=== PATIENT | female | born 1995 | race Caucasian/White ===

== ENCOUNTER 2018-01-22 14:05 | Inpatient (IN) | payer MEDICAID ==
[2018-01-22 15:24] VITALS: BMI 28.1
[2018-01-22] MEDS ORDERED: Lactated Ringer's 1,000 ML IV SCH (15:30)
--- NOTE | 2018-01-22 15:48 | OBADHP ---
Datetime: 01/22/2018 15:46 Admit Comment, IP Provider: 22 yo lmp 04/18 edc 01/23 by lmp _ 31wk ob us. she presents to obe d for nst referred by dr reyes. denies decreased fm, srom, or bleeding. she states she passed mucu s plug 3wks ago. +crmping, mild per pt. Ob hx sig for late transfer of care, noncompliance with irons supplem and Fe infusion. La st 11mo's ago obhx 02/17/17 pmhx: sickle cell trait; h/o anemia requiring transfusion in prior preg nkda medic: pnv fesoqd shx: denies tobocco use, etoh or illicit drugs. i: 39.twks Variable decels resolved p: admit for delivery variable decels resolved with maternal repositioning rubella titer, hepBs ag Datetime: 01/22/2018 15:32 Pelvic Type - PN: Adequate Extremities - PN: Normal Abdomen - PN: Normal Back - PN: Normal Breast - PN: Not Done Lungs - PN: Normal Heart - PN: Normal Neurologic - PN: Normal HEENT - PN: Normal General - PN: Normal Presentation-Admit: Vertex Membranes, Provider: Intact Contraction Comments Provider: 2-4 Vital Signs Provider: Within Normal Limits IP Chief Complaint: Other NICHD Variability Prov Fetus A: Moderate 6-25bpm NICHD Accel Fetus A IP Provider: [id number] FHR Category Provider Fetus A: Category II NICHD Decel Fetus A IP Provider: Variable Dilatation, Provider: 3 Effacement, Provider: 40 Station, Provider: -3 Genitourinary Exam: Normal EGA AdmitDate IP: 39.6 IP Adm Impression: Term, intrauterine IP Admit Plan: Admit to unit
[2018-01-22 17:43] LABS: BASO % 0.3 % (0.0-2.0); EOS % 0.3 % (0.0-4.0); HEMOGLOBIN 7.8 g/dL (12.0-16.0); LYMPH # 2.2 K/uL (1.0-4.3); LYMPH % 19.6 % (20.0-40.0); MEAN CELL VOLUME 62.6 fl (81.0-99.0); MEAN CORPUSCULAR HEMOGLOBIN 18.9 pg (27.0-31.0); MEAN CORPUSCULAR HGB CONC 30.2 g/dL (33.0-37.0); MEAN PLATELET VOLUME 7.9 fl (7.2-11.7); MONO # 0.9 K/uL (0.0-0.8); MONO % 7.8 % (0.0-10.0); RBC 4.12 Mil/uL (3.80-5.20); WHITE BLOOD COUNT 11.1 K/uL (4.8-10.8)
[2018-01-22] MEDS: Lactated Ringer's 1,000 ML IV SCH ×2 (17:45→19:00)
[2018-01-23] MEDS ORDERED: Fentanyl/Bupivacaine HCl 250 ML EPI ONE (01:49)
[2018-01-23] MEDS ORDERED: Oxycodone/Acetaminophen 5/325 mg Tab PO PRN ×2 (08:38→10:57)
[2018-01-23] MEDS ORDERED: Multivitamin With Minerals Tab PO SCH (09:00)
[2018-01-24 06:54] LABS: BASO # 0.1 K/uL (0.0-0.2); BASO % 0.5 % (0.0-2.0); EOS # 0.2 K/uL (0.0-0.7); EOS % 1.2 % (0.0-4.0); HEMOGLOBIN 7.4 g/dL (12.0-16.0); LYMPH # 3.1 K/uL (1.0-4.3); LYMPH % 23.1 % (20.0-40.0); MEAN CELL VOLUME 62.7 fl (81.0-99.0); MEAN CORPUSCULAR HEMOGLOBIN 19.4 pg (27.0-31.0); MEAN CORPUSCULAR HGB CONC 30.9 g/dL (33.0-37.0); MEAN PLATELET VOLUME 8.2 fl (7.2-11.7); MONO # 1.2 K/uL (0.0-0.8); MONO % 8.9 % (0.0-10.0); NEUT # 8.8 K/uL (1.8-7.0); NEUT % 66.3 % (50.0-75.0); NRBC % 0.1 % (0.0-0.0); RBC 3.84 Mil/uL (3.80-5.20); RED CELL DISTRIBUTION WIDTH 18.4 % (11.5-14.5); WHITE BLOOD COUNT 13.2 K/uL (4.8-10.8)
[2018-01-24] MEDS: Multivitamin With Minerals Tab PO SCH (08:19)
--- NOTE | 2018-01-25 08:10 | OBPPN ---
Datetime: 01/25/2018 08:06 PP Pain Prov: Within normal limits PP Nausea Prov: Denies PP Flatus Prov: Yes PP Breasts Prov: Normal PP Heart Prov: Normal PP Lungs Prov: Normal PP Abdomen/Uterus Prov: Normal PP Lochia Prov: Normal PP Vulva/Perineum Prov: Normal PP CVA Tenderness Prov: Normal PP Extremities Prov: Normal PP Progress Prov: Normal PP Impression Prov: Normal progression PP Plan Prov: Discharge PP Progress Note Prov: S/P , Clinically Stable Plan: D/c home Datetime: 01/24/2018 10:01 PP BM Prov: No Vital Signs Provider PP: Reviewed; Within Normal Limits
--- NOTE | 2018-01-25 08:12 | OBDCSUM ---
Datetime: 01/25/2018 08:09 Discharged to, Provider: Home Follow up at, Provider: [facility] Disch Instr Activity: Normal activity Disch Instr Diet: Regular Discharge Instructions, Provider: Routine instructions given Discharge Diagnosis, Provider: Term Delivered Discharge Time: 01/25/2018 08:09 Follow up in weeks, Provider: 4-6 weeks Disch Referrals: None Contraception discussed, Prov: Yes Discharge Comment, Provider: S/P Uncomplicated , Clinically Stable Discharge Diagnosis Prov Other: S/P Uncomplicated , Clinically Stable
[2018-01-25] MEDS: Multivitamin With Minerals Tab PO SCH (08:38)
[2018-01-25] MEDS ORDERED: Rubella Virus Vaccine Inj SC ONE (09:00)
[2018-01-25] MEDS ORDERED: Measles, Mumps, and Rubella 0.5 ML VIAL SC ONE (09:00)
[2018-01-25] MEDS ORDERED: Varicella Virus Vaccine Inj SC ONE (09:00)
[2018-01-25 21:51] VITALS: BP 108/67; PULSE 72; RESP 20; TEMP 98.4; O2SAT 100
== END 2018-01-25 15:05 | disposition home or self-care (01) | DRG 373 ==
LOC: H.EROB2 14:05 → H.L&D 15:24 → H.OB/GYN 01-23 12:14
PROVIDERS: ADMIT Obstetrics & Gynecology; ATTEND Obstetrics & Gynecology
PROC: 4A1HXCZ Monitoring of Products of Conception, Cardiac Rate, External Approach (ICD-10-PCS; 2018-01-22)
PROC: 10E0XZZ Delivery of Products of Conception, External Approach (ICD-10-PCS; principal; 2018-01-23)
PROC: 3E0234Z Introduction of Serum, Toxoid and Vaccine into Muscle, Percutaneous Approach (ICD-10-PCS; 2018-01-25)
DX: O48.0 Post-term pregnancy (principal); O99.02 Anemia complicating childbirth; D57.3 Sickle-cell trait; O76 Abnormality in fetal heart rate and rhythm complicating labor and delivery; Z3A.40 40 weeks gestation of pregnancy; Z37.0 Single live birth; Z23 Encounter for immunization; Z91.19 Patient's noncompliance with other medical treatment and regimen